=== PATIENT | male | born 1985 | race Caucasian/White ===

== ENCOUNTER 2017-01-16 08:23 | Emergency (ER) | payer SELFPAY ==
[2017-01-16] MEDS ORDERED: Sodium Chloride 0.9% 1,000 ML IV ONE (08:36)
[2017-01-16] MEDS ORDERED: Ketorolac 30 MG/ML SDV IVPUSH ONE (08:36)
[2017-01-16] MEDS ORDERED: Ondansetron 4 MG/2 ML SDV IVPUSH ONE (08:36)
[2017-01-16] MEDS ORDERED: HYDROmorphone 2 MG/ML Syringe IVPUSH ONE (08:36)
[2017-01-16] MEDS ORDERED: Sodium Chloride 0.9% 10 ML Syringe FLUSH PRN (08:36)
[2017-01-16] MEDS ORDERED: Sodium Chloride 0.9% 2.5 ML Syringe FLUSH PRN (08:36)
--- NOTE | 2017-01-16 08:39 | EDM.PDOC ---
ED HPI GENERAL MEDICAL PROBLEM - General Chief Complaint: Abdominal Pain Stated Complaint: LOWER ADBOMNIAL PAIN/BACK IN PAIN Time Seen by Provider: 01/16/17 08:31 - History of Present Illness INITIAL COMMENTS - FREE TEXT/NARRATIVE: HISTORY AND PHYSICAL: History of present illness: The patient is a 31-year-old male with a history of one kidney stone in the past which he passed spontaneously and testicular version which was repaired who presents with sudden onset of right-sided abdominal pain and flank pain that radiates to his testicle that started at 2 AM waking up and from sleep. The patient is a known history of diverticulosis and was worried that he might have diverticulitis as well which is why he is here. He says it does feel like a kidney stone but normally has more pain in his back and it is only mild in his back. He had nausea this morning but no vomiting and took nothing for pain at home. He has had an upper respiratory tract infection which is not concerned about over the last few days and had a completely normal day yesterday. He has had no trauma to the area. He has no testicular pain or swelling currently no hematuria no dysuria and no frequency. He says the pain is very deep and is located in the right lower abdomen radiating to the testicle and to the back. He has had no fever documented but felt feverish and somewhat sweaty when the pain started. Review of systems: As per history of present illness and below otherwise all systems reviewed and negative. Past medical history: As per history of present illness and as reviewed below otherwise noncontributory. Surgical history: As per history of present illness and as reviewed below otherwise noncontributory. Social history: No reported history of drug or alcohol abuse. Family history: As per history of present illness and as reviewed below otherwise noncontributory. Physical exam: General: Well-developed well-nourished mildly overweight male who is nontoxic and speaking clearly and easily in the ED. He visibly looks uncomfortable but is able to move well HEENT: Atraumatic, normocephalic, pupils reactive, negative for conjunctival pallor or scleral icterus, mucous membranes moist, throat clear, neck supple, nontender, trachea midline. Lungs: Clear to auscultation, breath sounds equal bilaterally, chest nontender. Heart: S1S2, regular rate and rhythm no overt murmurs Abdomen: Soft, nondistended, nontender. On palpation I'm unable to appreciate much tenderness in the right lower quadrant there is no rebound or guarding and bowel sounds are hypoactive Negative for masses or hepatosplenomegaly. Negative for costovertebral tenderness. Pelvis: Stable nontender. Genitourinary: Deferred. Rectal: Deferred. Extremities: Atraumatic, negative for cords or calf pain. Neurovascular unremarkable. Neuro: Awake, alert, oriented. Cranial nerves II through XII unremarkable. Cerebellum unremarkable. Motor and sensory unremarkable throughout. Exam nonfocal. Diagnostics: CBC CMP UA urine culture CT scan of the abdomen and pelvis Therapeutics: IV fluids Zofran Toradol Dilaudid Patient feels much improved in all testing results have been discussed with the patient and family at bedside. We will send him home on Flomax and pain medications Zofran and urine strainers and urology referral Impression: Right ureterolithiasis/kidney stone Definitive disposition and diagnosis as appropriate pending reevaluation and review of above. Right Lower Abdomen Pain Score (Numeric/FACES): 9 - Related Data Allergies Allergy/AdvReac Type Severity Reaction Status Date / Time No Known Allergies Allergy Verified 01/16/17 08:36 Past Medical History - Past Health History Medical/Surgical History: Denies Medical/Surgical History Social & Family History - Family History Family Medical History: Noncontributory - Tobacco Use Smoking Status *Q: Never Smoker Second Hand Smoke Exposure: No - Recreational Drug Use Recreational Drug Use: No ED ROS GENERAL - Review of Systems Review Of Systems: ROS reveals no pertinent complaints other than HPI. ED EXAM, GENERAL - Physical Exam Exam: See Below (See dictation) Course - Vital Signs Last Recorded V/S: Last Vital Signs Temp 35.7 C 01/16/17 08:29 Pulse 72 01/16/17 09:40 Resp 17 01/16/17 09:40 BP 143/91 H 01/16/17 09:40 Pulse Ox 97 01/16/17 09:40 - Orders/Labs/Meds Orders: Active Orders 24 hr Category Date Time Status Communication Order [RC] STAT Care 01/16/17 09:56 Ordered CULTURE URINE [RM] Stat Lab 01/16/17 08:44 Received Sodium Chloride 0.9% [Saline Flush] Med 01/16/17 08:36 Active 10 ml FLUSH ASDIRECTED PRN Sodium Chloride 0.9% [Saline Flush] Med 01/16/17 08:36 Active 2.5 ml FLUSH ASDIRECTED PRN Saline Lock Insert [OM.PC] Stat Oth 01/16/17 08:35 Ordered Medication Orders Sodium Chloride (Saline Flush) 10 ml FLUSH ASDIRECTED PRN PRN Reason: Keep Vein Open Last Admin: 01/16/17 08:59 Dose: 10 ml Sodium Chloride (Saline Flush) 2.5 ml FLUSH ASDIRECTED PRN PRN Reason: Keep Vein Open Last Admin: 01/16/17 08:59 Dose: 2.5 ml Labs: Laboratory Tests 01/16/17 01/16/17 01/16/17 Range/Units 08:32 08:32 08:44 WBC 12.63 H (4.0-11.0) K/uL RBC 5.29 (4.50-5.90) M/uL Hgb 15.7 (13.0-17.0) g/dL Hct 44.1 (38.0-50.0) % MCV 83.4 (80.0-98.0) fL MCH 29.7 (27.0-32.0) pg MCHC 35.6 (31.0-37.0) g/dL RDW Std Deviation 38.2 (28.0-62.0) fl RDW Coeff of Oli 13 (11.0-15.0) % Plt Count 320 (150-400) K/uL MPV 10.10 (7.40-12.00) fL Neut % (Auto) 55.5 (48.0-80.0) % Lymph % (Auto) 30.7 (16.0-40.0) % [place] % (Auto) 7.2 (0.0-15.0) % Eos % (Auto) 5.8 (0.0-7.0) % Baso % (Auto) 0.8 (0.0-1.5) % Neut # (Auto) 7.0 H (1.4-5.7) K/uL Lymph # (Auto) 3.9 H (0.6-2.4) K/uL [place] # (Auto) 0.9 H (0.0-0.8) K/uL Eos # (Auto) 0.7 (0.0-0.7) K/uL Baso # (Auto) 0.1 (0.0-0.1) K/uL Nucleated RBC % 0.0 /100WBC Nucleated RBCs # 0 K/uL Sodium 141 (136-146) mmol/L Potassium 3.6 (3.5-5.1) mmol/L Chloride 109 (98-110) mmol/L Carbon Dioxide 22 (21-31) mmol/L BUN 11 (6.0-23.0) mg/dL Creatinine 1.2 (0.6-1.5) mg/dL Est Cr Clr Drug Dosing 97.90 mL/min Estimated GFR (MDRD) > 60.0 ml/min Glucose 133 H (60-110) mg/dL Calcium 9.2 (8.8-10.8) mg/dL Total Bilirubin 1.4 (0.1-1.5) mg/dL AST 22 (5-40) IU/L ALT 39 (8-54) IU/L Alkaline Phosphatase 40 (40-150) Total Protein 7.4 (6.0-8.0) g/dL Albumin 4.2 (3.5-5.0) g/dL Globulin 3.2 (2.0-3.5) g/dL Albumin/Globulin Ratio 1.3 (1.3-2.8) Urine Color YELLOW Urine Appearance SLT CLOUDY Urine pH 5.5 (5.0-8.0) Ur Specific [place] 1.025 (1.001-1.035) Urine Protein NEGATIVE (NEGATIVE) mg/dL Urine Glucose (UA) NEGATIVE (NEGATIVE) mg/dL Urine Ketones NEGATIVE (NEGATIVE) mg/dL Urine Occult Blood LARGE H (NEGATIVE) Urine Nitrite NEGATIVE (NEGATIVE) Urine Bilirubin NEGATIVE (NEGATIVE) Urine Urobilinogen 0.2 (<2.0) EU/dL Ur Leukocyte Esterase NEGATIVE (NEGATIVE) Urine RBC 95-100 (0-2/HPF) Urine WBC 0-1 (0-5/HPF) Ur Epithelial Cells RARE (NONE-FEW) Urine Bacteria FEW (NEGATIVE) Meds: Medications Generic Name Dose Route Start Last Admin Trade Name Freq PRN Reason Stop Dose Admin Sodium Chloride 10 ml 01/16/17 08:36 01/16/17 08:59 Saline Flush FLUSH 10 ml ASDIRECTED PRN Administration Keep Vein Open Sodium Chloride 2.5 ml 01/16/17 08:36 01/16/17 08:59 Saline Flush FLUSH 2.5 ml ASDIRECTED PRN Administration Keep Vein Open Discontinued Medications Generic Name Dose Route Start Last Admin Trade Name Kristi PRN Reason Stop Dose Admin Hydromorphone HCl 1 mg 01/16/17 08:36 01/16/17 08:58 Dilaudid IVPUSH 01/16/17 08:37 1 mg ONETIME ONE Administration Sodium Chloride 1,000 mls @ 999 mls/hr 01/16/17 08:36 01/16/17 08:57 Normal Saline IV 01/16/17 09:36 999 mls/hr STAT ONE Administration Ketorolac Tromethamine 30 mg 01/16/17 08:36 01/16/17 08:57 Toradol IVPUSH 01/16/17 08:37 30 mg ONETIME ONE Administration Ondansetron HCl 4 mg 01/16/17 08:36 01/16/17 08:57 Zofran IVPUSH 01/16/17 08:37 4 mg ONETIME ONE Administration Departure - Departure Time of Disposition: 09:58 Disposition: Home, Self-Care 01 Condition: Good Clinical Impression: Kidney stone on right side - Discharge Information Referrals: PCP,None [Primary Care Provider] - Forms: ED Department Discharge Additional Instructions: The following information is given to patients seen in the emergency department who are being discharged to home. This information is to outline your options for follow-up care. We provide all patients seen in our emergency department with a follow-up referral. The need for follow-up, as well as the timing and circumstances, are variable depending upon the specifics of your emergency department visit. If you don't have a primary care physician on staff, we will provide you with a referral. We always advise you to contact your personal physician following an emergency department visit to inform them of the circumstance of the visit and for follow-up with them and/or the need for any referrals to a consulting specialist. The emergency department will also refer you to a specialist when appropriate. This referral assures that you have the opportunity for followup care with a specialist. All of these measure are taken in an effort to provide you with optimal care, which includes your followup. Under all circumstances we always encourage you to contact your private physician who remains a resource for coordinating your care. When calling for followup care, please make the office aware that this follow-up is from your recent emergency room visit. If for any reason you are refused follow-up, please contact the [facility] emergency department at and ask to speak to the emergency department charge nurse. [facility] [address] [place] [address] [id number] [facility] Primary care- Internal Medicine and Family [place] [address] [place] [id number] Push hydration and use medications as prescribed and directed. Please all and follow-up with our urologist and return to ER as needed and as discussed. Strain all urine - My Orders Last 24 Hours: My Active Orders 01/16/17 08:35 Saline Lock Insert [OM.PC] Stat 01/16/17 08:36 Sodium Chloride 0.9% [Saline Flush] 10 ml FLUSH ASDIRECTED PRN Sodium Chloride 0.9% [Saline Flush] 2.5 ml FLUSH ASDIRECTED PRN 01/16/17 08:44 CULTURE URINE [RM] Stat 01/16/17 09:56 Communication Order [RC] STAT - Assessment/Plan Last 24 Hours: My Active Orders 01/16/17 08:35 Saline Lock Insert [OM.PC] Stat 01/16/17 08:36 Sodium Chloride 0.9% [Saline Flush] 10 ml FLUSH ASDIRECTED PRN Sodium Chloride 0.9% [Saline Flush] 2.5 ml FLUSH ASDIRECTED PRN 01/16/17 08:44 CULTURE URINE [RM] Stat 01/16/17 09:56 Communication Order [RC] STAT
[2017-01-16 09:19] LABS: CHLORIDE,CL 109 mmol/L (98-110); SODIUM,NA 141 mmol/L (136-146)
--- NOTE | 2017-01-16 09:37 | CT ---
CT of the abdomen and pelvis without contrast. HISTORY: Pain TECHNIQUE: Axial CT images were obtained of the abdomen and pelvis without contrast. Coronal and sagi ttal reconstructions obtained. FINDINGS: The lung bases are clear, no pleural effusion. The liver, spleen, adrenal glands, and pancreas appear unremarkable for noncontrast examination. The gallbladder appears normal. There is no bulky retroperitoneal lymphadenopathy. No abdominal ascites. There is a 1 to 2 mm stone at the right ureterocystic junction with minimal proximal hydronephrosis. The large and small bowel are normal in caliber without evidence of obstruction. The appendix appears normal. Mild to moderate sigmoid diverticulosis. There is no bulky pelvic lymphadenopathy. No free f luid. No free air. The urinary bladder is decompressed. Tiny fat-containing umbilical hernia. Chronic bilateral spondylolysis at L5 with minimal anterolisthesis. IMPRESSION: 1. Tiny obstructing stone at the right ureterocystic junction with minimal proximal hydronephrosis. 2. Mild to moderate sigmoid diverticulosis. 3. Chronic spondylolysis at L5 bilaterally. 4. Small fat-containing umbilical hernia.
[2017-01-16] MEDS ORDERED: Tamsulosin 0.4 MG Cap.ER PO ONE (09:57)
[2017-01-16 10:25] VITALS: BP 163/105
== END 2017-01-16 10:25 | disposition home or self-care (01) ==
LOC: MW.ED 08:23
DX: N13.2 Hydronephrosis with renal and ureteral calculous obstruction (principal)
CPT/HCPCS: 36415; 74176; 80053; 81001; 85025; 87086; 96361; 96374; 96375; 99284; A9270; J1170; J1885; J2405; J7040; 99283

== ENCOUNTER 2020-01-31 16:02 | Emergency (ER) | payer SELFPAY ==
[2020-01-31] MEDS ORDERED: Lidocaine 1% 10 ML MDV INJECT ONE (17:57)
--- NOTE | 2020-01-31 18:05 | EDM.PDOC ---
ED HPI GENERAL MEDICAL PROBLEM - General Chief Complaint: Laceration Stated Complaint: RT MIDDLE FINGER LACERATION Time Seen by Provider: 01/31/20 17:56 Source of Information: Reports: Patient History Limitations: Reports: No Limitations - History of Present Illness INITIAL COMMENTS - FREE TEXT/NARRATIVE: 35-year-old male presents with right middle finger laceration 2 hours prior to arrival. He sliced his right middle finger on the roof shed by accident when he slid. Pain is mild, localized to the right DIP joint on the palmar surface, nonradiating, constant, exacerbated with range of motion, improved with immobilization. ROS: A 10-point review of systems, other than pertinent positives and negatives as stated per HPI, is otherwise negative Past medical history: No additional pertinent history Past Surgical history: No additional pertinent history Social history: No additional pertinent history Family history: No additional pertinent history PHYSICAL EXAM General: AOx4, GCS = 15, No distress HEENT: dry mucous membrane Neck: supple, no meningismus, no Kernig or Brudzinski Cardiac: S1S2 RRR Respiratory: CTAB, no crackles or rales, no wheezing Abdomen: Soft, nontender, no rebound or guarding, nondistended, no pulsatile mass. Back: nontender Musculoskeletal: NVI distally, no deformity, right 3rd digit DIP joint 2cm laceration, superficial, no active bleeding, no tendon injury, normal range of motion to DIP joint, MCP joint, PIP joint. Neuro: No focal deficits, CN 2 - 12 WNL. R middle finger Pain Score (Numeric/FACES): 2 - Related Data Allergies Allergy/AdvReac Type Severity Reaction Status Date / Time pollen Allergy Sneezing Uncoded 01/31/20 16:40 Home Meds: Home Meds . [No Known Home Meds] 01/16/17 [History] Past Medical History - Past Health History Medical/Surgical History: Denies Medical/Surgical History Gastrointestinal History: Reports: Diverticulosis Genitourinary History: Reports: Renal Calculus - Infectious Disease History Infectious Disease History: Reports: Chicken Pox - Past Surgical History GI Surgical History: Reports: None Male Surgical History: Reports: None Social & Family History - Family History Family Medical History: Noncontributory - Tobacco Use Smoking Status *Q: Current Some Day Smoker Years of Tobacco use: 2 Packs/Tins Daily: 0.1 - Caffeine Use Caffeine Use: Reports: None - Recreational Drug Use Recreational Drug Use: No ED ROS GENERAL - Review of Systems Review Of Systems: See Below (see dictation) ED EXAM, SKIN/RASH Exam: See Below (see dictation) ED SKIN PROCEDURES - Additional/Other Procedure(s) Other (Free Text) Procedure(s): FRACTURE / SPLINT CARE: Patient sustained a right middle finger laceration. I ordered a aluminum foam splint for the purpose of immobilization, placed by RN under my supervision with normal neurovascular function and soft compartments after placement. Patient will need to use it for 1 week, until their follow-up evaluation with CP in 10 to 14 days for suture removal. Patient voices understanding of follow-up and splint care which was reviewed verbally. LACERTION REPAIR: A time-out was completed verifying correct patient, procedure, site, posit ioning, and special equipment if applicable. Consent obtained after discussing risks, benefits, and alternatives. The wound was irrigated and locally anesthetized using percent lidocaine. The wound was linear, and noted to be 2.6 cm in length. The wound was contaminated with foreign body debris and was extensively irrigated with saline to foreign body removal. NV intact distally. 6-0 prolene sutures in a simple interrupted single layer closure were placed in the typical fashion. The wound edges were well approximated. Hemostasis achieved. Sterile dressing applied and follow up care discussed. Risk of infection and follow up suture removal discussed. Time spent: 15 min Course - Vital Signs Last Recorded V/S: Last Vital Signs Temp 96.6 F L 01/31/20 16:25 Pulse 98 01/31/20 16:25 Resp 17 01/31/20 16:25 BP 152/89 H 01/31/20 16:25 Pulse Ox 97 01/31/20 16:25 - Orders/Labs/Meds Orders: Active Orders 24 hr Category Date Time Status Splinting [RC] ASDIRECTED Care 01/31/20 18:05 Active Meds: Medications Discontinued Medications Generic Name Dose Route Start Last Admin Trade Name Kristi PRN Reason Stop Dose Admin Lidocaine HCl 10 ml 01/31/20 17:57 Xylocaine 1% INJECT 01/31/20 17:58 ONETIME ONE Lidocaine HCl Confirm 01/31/20 18:03 01/31/20 18:05 Xylocaine-Mpf 1% Administered 01/31/20 18:04 Not Given Dose 10 ml .ROUTE .STK-MED ONE Departure - Departure Time of Disposition: 18:00 Disposition: Home, Self-Care 01 Condition: Good Clinical Impression: Finger laceration - Discharge Information *PRESCRIPTION DRUG MONITORING PROGRAM REVIEWED*: Not Applicable *COPY OF PRESCRIPTION DRUG MONITORING REPORT IN PATIENT JOSE MANUEL: Not Applicable Instructions: Laceration Care, Adult, [id number], Sutures, Myrna, or Adhesive Wound Closure, [id number] Referrals: PCP,None [Primary Care Provider] - 1 Week Forms: ED Department Discharge Additional Instructions: The need for follow-up, as well as the timing and circumstances, are variable depending upon the specifics of your emergency department visit. If you don't have a primary care physician on staff, we will provide you with a referral. We always advise you to contact your personal physician following an emergency department visit to inform them of the circumstance of the visit and for follow-up with them and/or the need for any referrals to a consulting specialist. The emergency department will also refer you to a specialist when appropriate. This referral assures that you have the opportunity for follow-up care with a specialist. All of these measure are taken in an effort to provide you with optimal care, which includes your follow-up. Under all circumstances we always encourage you to contact your private physician who remains a resource for coordinating your care. When calling for follow-up care, please make the office aware that this follow-up is from your recent emergency room visit. If for any reason you are refused follow-up, please contact the [facility] Emergency Department at and asked to speak to the emergency department charge nurse. If you do not have a primary care doctor, please follow up with the clinics below within 3-5 days. [facility] - Primary Care [address] [place] [id number] [facility] [address] [place] [address] Sepsis Event Note (ED) - Evaluation Sepsis Screening Result: No Definite Risk - Focused Exam Vital Signs: Vital Signs Temp Pulse Resp BP Pulse Ox 01/31/20 16:25 96.6 F L 98 17 152/89 H 97 - My Orders Last 24 Hours: My Active Orders 01/31/20 18:05 Splinting [RC] ASDIRECTED - Assessment/Plan Last 24 Hours: My Active Orders 01/31/20 18:05 Splinting [RC] ASDIRECTED
[2020-01-31] MEDS ORDERED: Diphtheria,Pertussis(Acell),Tetanus Vaccine 0.5 ML Syringe IM ONE (19:04)
[2020-01-31 19:24] VITALS: BP 146/100; PULSE 88
== END 2020-01-31 19:23 | disposition home or self-care (01) ==
LOC: MW.ED 16:02
DX: S61.222A Laceration with foreign body of right middle finger without damage to nail, initial encounter (principal); F17.210 Nicotine dependence, cigarettes, uncomplicated; Z91.048 Other nonmedicinal substance allergy status; Z23 Encounter for immunization; W26.8XXA Contact with other sharp object(s), not elsewhere classified, initial encounter
CPT/HCPCS: 12042; 90471; 90715; 99282; J2001; 12002

== ENCOUNTER 2020-04-21 13:22 | Emergency (ER) | payer SELFPAY ==
[2020-04-21] MEDS ORDERED: Bacitracin Oint 1 GM U/D Packet TOP ONE (14:08)
--- NOTE | 2020-04-21 14:08 | EDM.PDOC ---
ED HPI GENERAL MEDICAL PROBLEM - General Chief Complaint: Laceration Stated Complaint: LACERATION TO L/HAND Time Seen by Provider: 04/21/20 13:33 Source of Information: Reports: Patient History Limitations: Reports: No Limitations - History of Present Illness INITIAL COMMENTS - FREE TEXT/NARRATIVE: Presents reporting laceration. Was working with a grinder and plater when a part slipped s triking his left second finger over the MP joint. Tetanus is up-to-date within the year. No other injuries. L index Pain Score (Numeric/FACES): 2 - Related Data Allergies Allergy/AdvReac Type Severity Reaction Status Date / Time pollen Allergy Sneezing Uncoded 04/21/20 13:31 Home Meds: Home Meds . [No Known Home Meds] 01/16/17 [History] Past Medical History - Past Health History Medical/Surgical History: Denies Medical/Surgical History Gastrointestinal History: Reports: Diverticulosis Genitourinary History: Reports: Renal Calculus - Infectious Disease History Infectious Disease History: Reports: Chicken Pox - Past Surgical History GI Surgical History: Reports: None Male Surgical History: Reports: None Social & Family History - Family History Family Medical History: No Pertinent Family History - Caffeine Use Caffeine Use: Reports: Soda - Recreational Drug Use Recreational Drug Use: No ED ROS GENERAL - Review of Systems Review Of Systems: Comprehensive ROS is negative, except as noted in HPI. ED EXAM, SKIN/RASH Exam: See Below Exam Limited By: No Limitations General Appearance: Alert, No Apparent Distress Ears: Normal External Exam Nose: Normal Inspection Throat/Mouth: Normal Inspection Head: Atraumatic Neck: Normal Inspection Respiratory/Chest: No Respiratory Distress Cardiovascular: Normal Peripheral Pulses Neurological: Alert, Oriented, Normal Cognition Psychiatric: Normal Affect, Normal Mood Skin: Warm, Dry, Normal Color, No Rash Location, Skin: Other (Second MP joint full range of motion without hesitation or limitation full strength to left second digit. 3 cm laceration over the MP joint) ED SKIN PROCEDURES - Laceration/Wound Repair Left Digit - 2nd (Index) Appearance: Superficial Distal NVT: Neuro & Vascular Intact Anesthetic Type: Local Local Anesthesia - Lidocaine (Xylocaine): 1% Plain Local Anesthetic Volume: 4cc Skin Prep: Chlorhexidine (Hibiciens), Saline Exploration/Debridement/Repair: Wound Explored, In a Bloodless Field Lac/Wound length In cm: 3 Suture Size: 4-0 # of Sutures: 7 Course - Vital Signs Last Recorded V/S: Last Vital Signs Temp 36.6 C 04/21/20 13:32 Pulse 77 04/21/20 13:32 Resp 18 04/21/20 13:32 BP 156/109 H 04/21/20 13:32 Pulse Ox 95 04/21/20 13:32 - Orders/Labs/Meds Meds: Medications Discontinued Medications Generic Name Dose Route Start Last Admin Trade Name Kristi PRN Reason Stop Dose Admin Lidocaine HCl 5 ml 04/21/20 13:37 04/21/20 13:42 Xylocaine-Mpf 1% INJECT 04/21/20 13:38 5 ml ONETIME ONE Administration Departure - Departure Time of Disposition: 14:12 Disposition: Home, Self-Care 01 Condition: Good Clinical Impression: Laceration - Discharge Information Referrals: PCP,None [Primary Care Provider] - Additional Instructions: The following information is given to patients seen in the emergency department who are being discharged to home. This information is to outline your options for follow-up care. We provide all patients seen in our emergency department with a follow-up referral. The need for follow-up, as well as the timing and circumstances, are variable depending upon the specifics of your emergency department visit. If you don't have a primary care physician on staff, we will provide you with a referral. We always advise you to contact your personal physician following an emergency department visit to inform them of the circumstance of the visit and for follow-up with them and/or the need for any referrals to a consulting specialist. The emergency department will also refer you to a specialist when appropriate. This referral assures that you have the opportunity for follow-up care with a specialist. All of these measure are taken in an effort to provide you with optimal care, which includes your follow-up. Under all circumstances we always encourage you to contact your private physician who remains a resource for coordinating your care. When calling for follow-up care, please make the office aware that this follow-up is from your recent emergency room visit. If for any reason you are refused follow-up, please contact the [facility] Emergency Department at and asked to speak to the emergency department charge nurse. 1. Removal 10 to 14 days, urgent care, return to ER, clinic 2. For signs of infection: Redness, swelling, purulent discharge report promptly Sepsis Event Note (ED) - Evaluation Sepsis Screening Result: No Definite Risk - Focused Exam Vital Signs: Vital Signs Temp Pulse Resp BP Pulse Ox 04/21/20 13:32 36.6 C 77 18 156/109 H 95
[2020-04-21 14:23] VITALS: BP 156/116; PULSE 78
== END 2020-04-21 14:25 | disposition home or self-care (01) ==
LOC: MW.ED 13:22
DX: S61.211A Laceration without foreign body of left index finger without damage to nail, initial encounter (principal); Z91.048 Other nonmedicinal substance allergy status; W22.8XXA Striking against or struck by other objects, initial encounter
CPT/HCPCS: 12002; 99282; J2001